=== PATIENT | female | born 1960 | race Caucasian/White ===

== ENCOUNTER 2017-08-14 07:04 | Emergency (ER) | payer OTHER ==
[~2017-08-14] VITALS: Ht 175.3 cm; Wt 83.5 kg
[~2017-08-14 07:04] MED LIST: ATEN-102 PO; CLOB-50 TOP; EXTR500C PO; HYDR-2768 PO; OMEP20TA39 PO; PRED20 PO
[2017-08-14 07:09] VITALS: BP 183/84; PULSE 116; RESP 18; TEMP 100.3; O2SAT 93
--- NOTE | 2017-08-14 07:11 | PD ---
HPI Chief Complaint: cough, vomiting, fever Time Seen by Provider: 07:11 Travel History International Travel<30 days: No Contact w/Intl Traveler<30days: No Traveled to known affect area: No History of Present Illness HPI 57-year-old female came to the emergency room saying that she has been feeling miserable for past 2 days. She has been running fever, vomiting and coughing. Patient has history of COPD. She is a smoker. Her last dose of Tylenol for the fever was at 4:30 this morning. Patient had a temperature of her 0.5 in triage. When I went in the room she was retching in the garbage can. She said she has been doing that and nothing really comes out anymore. Patient however is talking and able to give a complete meaningful history. [facility] Past Medical History Narrative Medical List of her past medical, surgical, social and family history reviewed from the nursing note. Autoimmune Disease: Yes (CICATRICAL PEMPHIGOID) Hypertension: Yes Immunizations Current: Yes Menopausal: Yes Tubal Ligation: Yes Social History Alcohol Use: Yes (RARE) Tobacco Use: Yes (1 PPD) Substance Use: No Allergies-Medications (Allergen,Severity, Reaction): Coded Allergies: No Known Allergies (Unverified Adverse Reaction, Unknown, 08/14/17) Comments No known drug allergies. Reported Meds & Prescriptions Reported Meds & Active Scripts Active Zofran Odt (Ondansetron Odt) 4 Mg Tab 4 Mg SL Q6HR PRN Reported Protopic Topical 1% (Tacrolimus Topical 1%) 0.1 % Oint 1 Applic TOPICAL BID Clobetasol Emollient Topical 0.05% Cream 1 Applic TOPICAL BID Advair Diskus Inh (Fluticasone-Salmeterol Inh) 500-50 Mcg/Blist Aer 1 Puff INH BID Rinse mouth after use. Vitamin B-12 (Cyanocobalamin) 1,000 Mcg Tab 1,000 Mcg PO DAILY Doxycycline Hyclate 100 Mg Cap 100 Mg PO BID Mycophenolate (Mycophenolate Mofetil) 500 Mg Tab 1,000 Mg PO BID Omeprazole 40 Mg Cap 40 Mg PO BID Hydrochlorothiazide 25 Mg Tab 25 Mg PO DAILY Tenormin (Atenolol) 50 Mg Tab 50 Mg PO DAILY Wellbutrin Xl 24 HR (Bupropion HCl) 150 Mg Tab 150 Mg PO DAILY Narrative Medication List of her home medications reviewed from the nursing note. Review of Systems Except as stated in HPI: all other systems reviewed are Neg General / Constitutional: Positive: Fever Respiratory: Positive: Cough Gastrointestinal: Positive: Nausea, Vomiting Physical Exam Narrative GENERAL: Awake, alert, moderate distress SKIN: Focused skin assessment warm/dry. HEAD: Atraumatic. Normocephalic. EYES: Pupils equal and round. No scleral icterus. No injection or drainage. ENT: No nasal bleeding or discharge. Mucous membranes pink and moist. NECK: Trachea midline. No JVD. CARDIOVASCULAR: Regular rate and rhythm. No murmur appreciated. RESPIRATORY: No accessory muscle use. Clear to auscultation. Breath sounds equal bilaterally. GASTROINTESTINAL: Abdomen soft, non-tender, nondistended. Hepatic and splenic margins not palpable. MUSCULOSKELETAL: No obvious deformities. No clubbing. No cyanosis. No edema. NEUROLOGICAL: Awake and alert. No obvious cranial nerve deficits. Motor grossly within normal limits. Normal speech. PSYCHIATRIC: Appropriate mood and affect; insight and judgment normal. Data Data Last Documented VS Orders Orders Influenzae A/B Antigen (08/14/17 07:15) Ibuprofen (Motrin) (08/14/17 07:15) Ondansetron Odt (Zofran Odt) (08/14/17 07:15) Albuterol-Ipratropium Neb (Duoneb Neb) (08/14/17 07:15) Ed Discharge Order (08/14/17 08:27) [facility] Medical Decision Making Medical Screen Exam Complete: Yes Emergency Medical Condition: Yes Medical Record Reviewed: Yes Differential Diagnosis Influenza, pneumonia, viral illness Narrative Course 7:33 AM patient was given Zofran ODT, Motrin and DuoNeb. I've ordered a influenza test for her. Awaiting for the test result. 8:23 AM patient was reassessed and she was resting more comfortably at this time. She says that her cough and nausea has gone away and she just feels tired. Her flu test came back negative. I reassessed her lung sounds with auscultation and there was significantly improved air entry and no wheezing. I' ll discharge her home. She was given instructions as well as advised not to smoke. She understands. Procedures EKG Prior to Arrival: No Diagnosis Primary Impression: Viral illness Additional Impressions: COPD exacerbation Needs smoking cessation education Referrals: Primary Care Physician 2 days Additional Instructions: Return to the ER if condition worsens or any other new concerns. Take 2 puffs of your albuterol inhaler every 4-6 hours for next 24-48 hours. Take the medication as per the prescription direction. You should not be smoking or else your symptoms will worsen. Take Tylenol/Motrin/ibuprofen/Advil for fever as needed. Med/Other Pt SpecificInfo: Prescription(s) given Scripts Ondansetron Odt (Zofran Odt) 4 Mg Tab 4 MG SL Q6HR Y for Nausea/Vomiting, #10 TAB 0 Refills Prov: Júnior Madsen MD 08/14/17 Disposition: 01 DISCHARGE HOME Condition: Stable Júnior Madsen MD Aug 14, 2017 07:11
[2017-08-14] MEDS ORDERED: ONDANSETRON ODT 4 MG TAB PO ONE (07:15)
[2017-08-14] MEDS ORDERED: IBUPROFEN 600 MG TAB PO ONE (07:15)
[2017-08-14] MEDS ORDERED: ATEN1TAB74 PO (07:24)
[2017-08-14] MEDS ORDERED: MYCO500T PO (07:24)
[2017-08-14] MEDS ORDERED: CLOB0.0571 TOPICAL (07:24)
[2017-08-14] MEDS ORDERED: DOXY100C PO (07:24)
[2017-08-14] MEDS: RESP: ALBUTEROL 2.5 MG/IPRATROPIUM 0.5 MG NEB (SCH) INH (07:24)
[2017-08-14] MEDS ORDERED: VITA10002 PO (07:24)
[2017-08-14] MEDS ORDERED: OMEP40CA2 PO (07:24)
[2017-08-14] MEDS ORDERED: ADVA500A INH (07:24)
[2017-08-14] MEDS ORDERED: HYDR25TA5 PO (07:24)
[2017-08-14] MEDS ORDERED: BUPR150XL PO (07:24)
[2017-08-14] MEDS ORDERED: PROT0.1O TOPICAL (07:24)
[2017-08-14] MEDS ORDERED: ZOFR4TAB3 SL (08:27)
== END 2017-08-14 08:35 | disposition home or self-care (01) ==
LOC: PHED 07:04
DX: B34.9 Viral infection, unspecified (principal); J44.1 Chronic obstructive pulmonary disease with (acute) exacerbation; I10 Essential (primary) hypertension; L12.1 Cicatricial pemphigoid; F17.210 Nicotine dependence, cigarettes, uncomplicated
CPT/HCPCS: 87804; 94640; 94664; 99283

== ENCOUNTER 2018-01-30 09:31 | Observation (INO) ==
[2018-01-30] MEDS ORDERED: Chlorhexidine Gluconate 2% 1 Pack (2 Cloths) TOPICAL SCH (10:00)
[2018-01-30] MEDS ORDERED: Metoprolol Tartrate 25 MG Tablet PO SCH (10:00)
[2018-01-30] MEDS ORDERED: Sodium Chlor 0.9% Inj 500 ML IV.SIG SCH (10:00)
[2018-01-30] MEDS ORDERED: ceFAZolin 2 GM IV; once IV.SIG SCH (10:00)
[2018-01-30 10:35] LABS: Bilirubin,Urine Negative (Negative); Clarity,Urine Clear (Clear); Color,Urine Yellow (Yellw/Straw); Glucose,Urine (UA) Negative (Negative); Leukocyte Esterase,Urine Trace (Negative); Mucus,Urine Few /lpf (Occasional); Nitrite,Urine Negative (Negative); Specific Gravity,Urine 1.016 (1.002-1.035); Squamous Epithelial Cell,Urine 3 /hpf (0-5)
[2018-01-30 11:15] LABS: Baso % (Auto) 0.5 % (0.0-2.0); Eos # (Auto) 0.2 th/mm3 (0.0-0.4); Eos % (Auto) 2.4 % (0.0-4.0); Hematocrit 44.1 % (35.0-46.0); Hemoglobin 14.8 gm/dL (11.6-15.3); Lymph # (Auto) 2.8 th/mm3 (1.0-4.8); Lymph % (Auto) 38.7 % (9.0-44.0); Mean Corpuscular HGB Conc 33.5 % (32.0-36.0); Mean Corpuscular Hemoglobin 29.5 pg (27.0-34.0); Mean Platelet Volume 9.7 fL (7.0-11.0); Mono # (Auto) 0.6 th/mm3 (0.0-0.9); Mono % (Auto) 8.4 % (0.0-8.0); Neut # (Auto) 3.7 th/mm3 (1.8-7.7); Platelet Count 136 th/mm3 (150-450); Red Blood Count 5.02 mil/mm3 (4.00-5.30); White Blood Count 7.3 th/mm3 (4.0-11.0)
--- NOTE | 2018-01-30 11:24 | ECG ---
Date Performed: 01/30/2018 Time Performed: 10:32:22 PTAGE: 57 years EKG: Sinus rhythm NORMAL ECG NO PREVIOUS TRACING DOCTOR: Radhames Shaw Interpretating Date/Time 01/30/2018 11:23:47
[2018-01-30 11:27] LABS: Activated Partial Thrombo Time 24.8 sec (24.3-30.1); INR 1.1 Ratio; Prothrombin Time 11.3 sec (9.8-11.6)
--- NOTE | 2018-01-30 11:33 | XR ---
EXAM DATE: 01/30/2018 11:09 AM EDT AGE/SEX: 57 years / Female INDICATIONS: Pre op kyphoplasty. Evaluate for pneumothorax, pneumonia, or communicable diseases. CLINICAL DATA: This is the patient's initial encounter. Patient reports that signs and symptoms have been present for 1 day and indicates a pain score of 0/10. MEDICAL/SURGICAL HISTORY: None. None. COMPARISON: COMP, XR CHEST PA AND LAT, 09/13/2016. . FINDINGS: A single AP view of the chest demonstrates the lungs to be symmetrically aerated without evidence of mass, infiltrate or effusion. The cardiomediastinal contours are unremarkable. Osseous structures a re intact. CONCLUSION: Negative examination. Electronically signed by: Ashish Swanson MD 01/30/2018 11:31 AM EDT
[2018-01-30 11:40] LABS: Anion Gap 8 meq/L (5-15); Carbon Dioxide 28.7 meq/L (21.0-32.0); Chloride 108 meq/L (98-107); Potassium 3.7 meq/L (3.5-5.1); Sodium 145 meq/L (136-145)
[2018-01-30 11:41] LABS: Alanine Aminotransferase 26 U/L (10-53); Albumin 3.7 g/dL (3.4-5.0); Alkaline Phosphatase 99 U/L (45-117); Aspartate Aminotransferase 15 U/L (15-37); Blood Urea Nitrogen 21 mg/dL (7-18); Glomerular Filtration Rate 85 mL/min (>89); Glucose,Random 91 mg/dL (74-106); Total Protein 6.5 g/dL (6.4-8.2)
[2018-01-30] MEDS ORDERED: Glycopyrrolate Inj 1 MG/5 ML Syringe IV.PUSH ONE (12:00)
[2018-01-30] MEDS ORDERED: Phenylephrine/NS 1000 MCG/10ML Syringe IV.PUSH ONE (12:00)
[2018-01-30] MEDS ORDERED: Neostigmine Inj 5 MG/5 ML Syringe IV.PUSH ONE (12:00)
[2018-01-30] MEDS ORDERED: Lidocaine PF 1% Inj 5 ML Syringe INFILTRATN ONE (12:00)
[2018-01-30] MEDS: Bupivacaine/Epinephrine 0.5% Inj 50 ML Vial ONE ×2 (16:10→18:41)
[2018-01-30] MEDS ORDERED: fentaNYL Citrate Inj 100 MCG/2 ML Ampul ONE ×2 (16:34→16:40)
[2018-01-30] MEDS ORDERED: Bisacodyl 10 MG Supp RECTAL PRN ×2 (16:35→16:44)
[2018-01-30] MEDS ORDERED: *morphine SULFATE 10 MG/ML PERIprocedure ONLY ONE ×2 (16:50→17:38)
--- NOTE | 2018-01-30 16:51 | P.OP ---
- Preoperative Diagnosis (1) Compression fracture of L2 lumbar vertebra - Postoperative Diagnosis (1) Compression fracture of L2 lumbar vertebra Date of procedure: 01/30/18 Procedure: L2 kyphoplasty Anesthesia: JANENEA Surgeon: Jorge Boyle MD Devulcanizer Tender: SHIN Pathology: none sent Operation and Findings: INDICATIONS FOR THE PROCEDURE Ms De Leon is a 57 year-old female who presented with intractable pain related to a compression fracture at L2. The patient has failed nonsurgical management and a kyphoplasty was indicated as the most appropriate form of treatment. The [id number] details of the procedure, indications, alternatives, risks and potential complications were fully discussed with the patient. The patient fully understood. All The questions were answered. No guarantees were given. The patient voiced requesting the procedure and provided informed consents. The patient was offered the alternative of delaying the procedure and continuing with nonsurgical management. DETAILS OF THE SURGICAL PROCEDURE The patient was brought to the operating room and after the induction of general anesthesia, endotracheal intubation was performed. A Darden catheter and bilateral ANTONINO hose and sequential compression devices were placed and kept throughout the procedure. The patient was positioned prone on the Joel table over gel rods. All pressure points were carefully padded with egg crate mattress. The eyes were tapped shut after ointment was applied by the anesthesiologist to prevent corneal abrasion. A Alexa hugger was placed over the exposed lower body to maintain control of the core body temperature. The lumbar region was prepped and draped in the usual sterile fashion. The C-arms were brought to the field and simultaneous AP and lateral x-rays were obtained. The levels were carefully counted and the pedicles were marked over the skin. An entry point was selected 1 centimeter superior and 1 centimeter lateral to the pedicle. Two small incisions were outlined on the skin and infiltrated with 1% lidocaine with epinephrine in 1:100,000 dilution. Initially, two small skin incisions were made with a #11 blade. Then, Jamshidi needles were carefully advanced to the entrance of the pedicle, and then into the vertebral body L2 under continuous fluoroscopic guidance. K-wires were placed inside the vertebral body of and the needles were carefully removed. A drill was used to create a trough into the vertebral body to insert a cannula. Once the cannula was located through the pedicle, the drill was removed and bilateral balloons were inserted into the vertebral body for vertebral augmentation. A careful expansion of the balloon under continuous fluoroscopic guidance and manometric evaluation allowed expansion of the vertebral body. Then , the balloons were deflated and carefully removed and the voids created in the vertebral body were filled with bone cement under fluoroscopic visualization. A very good expansion of the vertebral bodies was achieved without evidence of extravasation or cement or other complications. The cannulas were then removed. The incisions were closed using a single stitch at each incision. Dermabond was applied to the skin. At the end of the procedure, the sponge, needle, instrument counts correct. The estimated blood loss as minimal. No intraoperative complications occurred. The patient received prophylactic antibiotics. The patient was then extubated and transferred to the recovery room in stable condition.
[2018-01-30] MEDS ORDERED: TACROLIMUS TOPICAL PRN (17:08)
[2018-01-30] MEDS ORDERED: diazePAM 2 MG Tablet PO PRN (17:08)
[2018-01-30] MEDS ORDERED: Melatonin 5 MG Tablet PO PRN (17:08)
[2018-01-30] MEDS ORDERED: Meloxicam 7.5 MG Tablet PO PRN (17:08)
[2018-01-30] MEDS ORDERED: *Promethazine Inj 25 MG/ML Vial PERIprocedural use ONLY ONE (18:27)
[2018-01-30] MEDS: hydroCHLOROthiazide 25 MG Tablet PO SCH (18:44)
[2018-01-30] MEDS: buPROPion 150 MG 12 HR Tablet PO SCH (18:44)
--- NOTE | 2018-01-30 19:13 | XR ---
EXAM DATE: 01/30/2018 6:50 PM EDT AGE/SEX: 57 years / Female INDICATIONS: L2 Kyphoplasty. CLINICAL DATA: This is the patient's initial encounter. Patient reports that signs and symptoms have been present for 1 day and indicates a pain score of Nonresponsive. MEDICAL/SURGICAL HISTORY: Non-responsive. Non-responsive. COMPARISON: No prior exams available for comparison. FINDINGS: 2 views from the OR have been obtained. The patient is status post L2 kyphoplasty. The radiodense mat erial is well placed within the L2 vertebral body. There is a concave deformity at the superior aspec t of L2 with mild loss of height at L2. CONCLUSION: Successful kyphoplasty. Electronically signed by: Jacob Andrea MD 01/30/2018 7:12 PM EDT
[2018-01-30] MEDS ORDERED: Senna/Docusate Sodium 8.6/50 MG Tablet PO SCH (21:00)
[2018-01-30] MEDS: Budesonide-Formoterol 80/4.5 MCG 6.9 GM Inhaler INH SCH (22:13)
[2018-01-30 22:16] VITALS: RESP 17
[2018-01-30] MEDS: Senna/Docusate Sodium 8.6/50 MG Tablet PO SCH (22:25)
[2018-01-31] MEDS ORDERED: Calcitonin Salmon Nasal 200 UNITS/Actuation - (3.7 ML) NASAL SCH (09:00)
[2018-01-31] MEDS ORDERED: Calcium/Vitamin D 250/125 MG Tablet PO SCH (09:00)
[2018-01-31] MEDS ORDERED: Atenolol 50 MG Tablet PO SCH (09:00)
[2018-01-31] MEDS ORDERED: Vitamin B Complex/Vitamin C Tablet PO SCH (09:00)
[2018-01-31] MEDS: hydroCHLOROthiazide 25 MG Tablet PO SCH (09:31)
[2018-01-31] MEDS: buPROPion 150 MG 12 HR Tablet PO SCH (09:31)
[2018-01-31] MEDS: Senna/Docusate Sodium 8.6/50 MG Tablet PO SCH (09:32)
[2018-01-31] MEDS: Budesonide-Formoterol 80/4.5 MCG 6.9 GM Inhaler INH SCH (09:33)
--- NOTE | 2018-01-31 12:58 | P.DS ---
Date of admission: 01/30/18 16:41 Primary care physician: Dr Rocky Norton Brief History from admission: Ms De Leon is a 57 year-old female who presented with intractable pain related to a compression fracture at L2. The patient has failed nonsurgical management and a kyphoplasty was indicated as the most appropriate form of treatment. DS: Medications - Discharge Medications Prescriptions: hydrocodone-acetaminophen 1 tab PO Q4H PRN 3 Days #15 tab PRN Reason: Pain Scale 1 To 5 DS: Summary Hospital Course: Ms. De Leon is a 57 year old female who underwent a L2 kyphoplasty for L2 compression fracture on 01/30/18. Her surgery went well without complications and she will be discharged home in stable conditions. - Time Spent with Patient Total time spent providing and/or coordinating discharge services: - Quality: VTE Deep Vein Thrombosis/Pulmonary Embolism Present on Admission: No Exam Vital signs: Vital Signs 01/30/18 16:30 01/30/18 16:45 01/30/18 17:00 Temperature 97.5 F L Pulse Rate 80 70 68 Respiratory Rate 16 16 16 Blood Pressure 150/87 H 131/77 128/76 Pulse Oximetry 94 L 96 96 01/30/18 17:15 01/30/18 17:30 01/30/18 18:00 Temperature Pulse Rate 64 66 62 Respiratory Rate 16 16 16 Blood Pressure 130/82 123/78 112/71 Pulse Oximetry 96 97 97 01/30/18 20:00 01/30/18 20:30 01/30/18 21:00 Temperature 98.1 F 98.1 F 98.1 F Pulse Rate 77 72 72 Respiratory Rate 16 16 17 Blood Pressure 136/63 114/67 108/66 Pulse Oximetry 94 L 95 94 L 01/30/18 21:20 01/30/18 22:05 01/31/18 00:00 Temperature 98.0 F 98.1 F 98 F Pulse Rate 85 78 83 Respiratory Rate 16 17 17 Blood Pressure 106/83 122/74 109/58 L Pulse Oximetry 95 93 L 93 L 01/31/18 08:00 Temperature 97.2 F L Pulse Rate 75 Respiratory Rate 17 Blood Pressure 120/66 Pulse Oximetry 93 L Intake & Output 01/30/18 01/31/18 01/31/18 18:59 06:59 18:59 Intake Total 1050 / 1050 1060 / 1060 100 / 100 Output Total 300 / 300 Balance 1050 / 1050 760 / 760 100 / 100 Weight 77.6 kg Intake: IV 50 / 50 100 / 100 100 / 100 Ancef 2 GM Premix Inj 2 gm In 50 / 50 50 ml @ 100 mls/hr IV.SIG SULPHATE TESTER CATHY Rx#:[id number] Ancef Inj 1,000 MG In NS Inj 100 / 100 100 / 100 100 ML @ 200 mls/hr IV.SIG Q8H CATHY Rx#:[id number] Oral 960 / 960 Anesthesia Amount 1000 / 1000 Output: Urine 300 / 300 Other: # Voids 2 Weight On Admission 77.6 kg Results Procedures completed during hospitalization: L2 kyphoplasty Labs on day of discharge: Labs from last 24 hours 01/30/18 10:15 Nasal Screen MRSA (PCR) Not detected - Impressions ITS Impressions Chest X-Ray 01/30/18 00:00 CONCLUSION: Negative examination. Lumbar Spine X-Ray 01/30/18 00:00 CONCLUSION: Successful kyphoplasty. Discharge Plan - Discharge Disposition Patient Disposition: 01 Discharge Home - Discharge Condition Condition: Good - Discharge Order Discharge Orders: Discharge Order (Routine); Ordered 01/31/18 Ordered By: [place] - Physicians Team Attending Provider: Jorge Boyle - Rxs /Orders / Referrals /Forms Prescriptions: New hydrocodone-acetaminophen 10-325 mg Tablet 1 tab PO Q4H PRN (Reason: Pain Scale 1 To 5) 3 Days Qty: 15 RF: 0 Continue albuterol sulfate [ProAir RespiClick] 90 mcg/actuation Aerosol Powdr Breath Activated 2 puff INHALATION Q6H PRN (Reason: Shortness Of Breath) atenolol 50 mg Tablet 50 mg PO DAILY bupropion HCl 150 mg Tablet Extended Release 24 Hr 150 mg PO QAM Ca carb-D3-mag [id number] [Caltrate + D3 Plus Minerals] 300 mg-800 unit - 25 mg-0.5 mg Tablet 1 tab PO DAILY diazepam 2 mg Tablet 2 mg PO DAILY PRN (Reason: Anxiety) doxycycline monohydrate 100 mg Tablet 100 mg PO BID fluticasone-salmeterol [Advair Diskus] 100-50 mcg/dose Blister With Device 1 puff INHALATION BID hydrochlorothiazide 25 mg Tablet 25 mg PO QAM meloxicam 7.5 mg Tablet 7.5 mg PO DAILY PRN (Reason: Pain) No Action calcitonin (salmon) 200 unit/actuation [place],Non-Aerosol 1 spray INTRANASAL (ALT) DAILY melatonin 5 mg Tablet 5 mg PO HS PRN (Reason: Insomnia) mycophenolate mofetil 500 mg Tablet 500 mg PO BID omeprazole 40 mg Capsule,Delayed Release(Dr/Ec) 40 mg PO BID ondansetron 4 mg Tablet,Disintegrating 4 mg PO QID PRN (Reason: Nausea) tacrolimus 0.1 % Ointment 1 applic TOPICAL BID PRN (Reason: Mouth Irritation) vitamin B complex [B Complex-Vitamin B12] Tablet 1 tab PO DAILY Referrals: Dr Rocky Norton [Other] - See Instructions
[2018-01-31 13:08] VITALS: BP 106/60; PULSE 65; TEMP 97.6; O2SAT 96
== END 2018-01-31 13:52 | disposition home or self-care (01) ==
LOC: N07 09:31 → HOR 09:31 → HSDI 09:31 → N07 21:54
PROVIDERS: ADMIT Neurological Surgery; ATTEND Neurological Surgery